=== PATIENT | male | born 1950 ===

== ENCOUNTER 2016-05-28 09:13 | Emergency (ER) | payer OTHER ==
[2016-05-28 09:33] VITALS: BP 151/91; PULSE 65; RESP 14; TEMP 98.4; O2SAT 97
--- NOTE | 2016-05-28 09:41 | UCPHY ---
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 CMS intact distal to injury. Time Seen by Provider: 05/28/16 09:33 HPI/ROS: CHIEF COMPLAINT: Left wrist pain HISTORY OF PRESENT ILLNESS: The patient is a 66-year-old man who comes to the Urgent Care complaining of left wrist pain and limited mobility. He states that hurts over the distal ulna. He has had a previous injury in that same site. He was breaking branches on Tuesday when he 1st noticed the pain. There was not a sudden injury that he was aware of. No laceration or abrasion. REVIEW OF SYSTEMS: Constitutional: denies: chills, fever, recent illness, recent injury EENTM: denies: blurred vision, double vision, nose congestion Respiratory: denies: cough, shortness of breath Cardiac: denies: chest pain, irregular heart rate, lightheadedness, palpitations Gastrointestinal/Abdominal: denies: abdominal pain, diarrhea, nausea, vomiting, blood streaked stools Genitourinary: denies: dysuria, frequency, hematuria, pain Musculoskeletal: See HPI Skin: denies: lesions, rash, jaundice, bruising Neurological: denies: headache, numbness, paresthesia, tingling, dizziness, weakness Hematologic/Lymphatic: denies: blood clots, easy bleeding, easy bruising Immunologic/allergic: denies: HIV/AIDS, transplant EXAM: GENERAL: Well-appearing, well-nourished and in no acute distress. HEAD: Atraumatic, normocephalic. EYES: Pupils equal round and reactive to light, extraocular movements intact, sclera anicteric, conjunctiva are normal. ENT: TMs normal, nares patent, oropharynx clear without exudates. Moist mucous membranes. NECK: Normal range of motion, supple without lymphadenopathy or JVD. LUNGS: Breath sounds clear to auscultation bilaterally and equal. No wheezes rales or rhonchi. HEART: Regular rate and rhythm without murmurs, rubs or gallops. ABDOMEN: Soft, nontender, normoactive bowel sounds. No guarding, no rebound. No masses appreciated. BACK: No CVA tenderness, no spinal tenderness, step-offs or deformities EXTREMITIES: Mobility with wrist flexion limited by pain, no pitting or edema. No clubbing or cyanosis. Normal pulses and sensation distally. NEUROLOGICAL: Cranial nerves II through XII grossly intact. Normal speech, normal gait. 5/5 strength, normal movement in all extremities, normal sensation PSYCH: Normal mood, normal affect. SKIN: Warm, dry, normal turgor, no visible rashes or lesions. Source: Patient Exam Limitations: No limitations - Medical/Surgical History Other PMH: PCP Poddar. Tetanus UTD. Flu NONE - Family History Significant Family History: Hypertension - Social History Smoking Status: Never smoked Alcohol Use: Sober Drug Use: None Constitutional: Initial Vital Signs Temperature (C) 36.9 C 05/28/16 09:31 Heart Rate 65 05/28/16 09:31 Respiratory Rate 14 05/28/16 09:31 Blood Pressure 151/91 H 05/28/16 09:31 O2 Sat (%) 97 05/28/16 09:31 O2 Delivery Mode Room Air Allergies/Adverse Reactions: No Known Allergies Allergy (Verified 05/28/16 09:33) Home Medications: Medication Instructions Recorded Nasal [place] For Allergies. 05/28/16 Medical Decision Making - Diagnostics Imaging: X-ray: Left wrist was obtained. I viewed the images myself on the PACS system. My interpretation of the images is: Negative. The radiologist interpretation is negative for acute injury, small fibroma and distal radius. ED Course/Re-evaluation: we discussed the x-ray results as well as the fibroma and MRI if he develops pain in that region. Patient is relieved. He has a wrist brace at home. She declines further workup or testing or medication. Discussed indications for returning. Differential Diagnosis: Partial list of the Differential diagnosis considered include but were not limited to; wrist sprain, fracture, contusion and although unlikely based on the history and physical exam, I also considered dislocation, infection, cancer. I discussed these differential diagnoses and the plan with the patient as well as the usual and expected course. The patient understands that the diagnosis is provisional and that in medicine we are not always correct and that further workup is often warranted. Usual and customary warnings were given. All of the patient's questions were answered. The patient was instructed to return to the emergency department should the symptoms at all worsen or return, otherwise to followup with the physician as we discussed. Departure - Departure Disposition: Home, Routine, Self-Care Clinical Impression: Wrist pain, acute Qualifiers: Laterality: left Qualified Code(s): M25.532 - Pain in left wrist Condition: Fair Instructions: Wrist Injury (ED) Referrals: JC GARCIA [Primary Care Provider] - As per Instructions Jamee March MD [Medical Doctor] - As per Instructions - PQRS PQRS Measurement: 134: Depression screening and followup, PRIME CAST-PHQ2 (12 years and older) Over the last 2 weeks, how often have you been bothered by any of the following problems? 1. Feeling down, depressed, or hopeless? 2. Little interest or pleasure in doing things? Patient answered no to both 1 and 2 130: Documentation of medications. Reviewed all patient medications, doses, route and frequency. 226: Do you smoke? No. 47: 65 and older: Advanced care planning. Patient designates surrogate decision maker as spouse . Patient has advanced directive. 51: 18 years old and older with diagnosis of COPD, spirometry performance. Spirometry not performed; equipment not available. 52: 18 years old and older with COPD and symptoms of COPD or FEV1<60% predicted prescribed a B Agonist. Not applicable
== END 2016-05-28 11:00 | disposition home or self-care (01) ==
LOC: CED 09:13
DX: S69.92XA Unspecified injury of left wrist, hand and finger(s), initial encounter (principal); M25.532 Pain in left wrist; X50.3XXA Overexertion from repetitive movements, initial encounter
CPT/HCPCS: 73110-PO; G0463-PO